=== PATIENT | female | born 1965 | race Caucasian/White ===

== ENCOUNTER 2017-07-18 09:58 | Day surgery (SDC) | payer OTHER ==
[2017-07-18] MEDS ORDERED: BACITRACIN/POLYMYXIN 28.35 GM OINT TOP (12:10)
[2017-07-18] MEDS ORDERED: DEXAMETHASONE 4 MG/ML 1 ML INJ ×2 (12:10→13:23)
[2017-07-18] MEDS ORDERED: ROPIVACAINE 0.5 % 30 ML VIAL (12:50)
[2017-07-18] MEDS ORDERED: MIDAZOLAM 1 MG/ML 2 ML INJ (12:50)
[2017-07-18] MEDS ORDERED: PROPOFOL 20 ML (12:50)
[2017-07-18] MEDS: BUPIVACAINE 0.5% (SDV) 30 ML INJ (13:15)
[2017-07-18] MEDS ORDERED: CEFAZOLIN 1 GM INJ (13:23)
[2017-07-18] MEDS ORDERED: METOCLOPRAMIDE 10 MG INJ (13:23)
[2017-07-18] MEDS ORDERED: KETOROLAC 30 MG INJ (13:23)
[2017-07-18] MEDS ORDERED: ONDANSETRON 4 MG INJ (13:23)
[2017-07-18] MEDS ORDERED: HYDROCODONE/APAP (5/325) TAB PO (14:30)
== END 2017-07-18 15:20 | disposition home or self-care (01) ==
LOC: SDS 09:58
DX: M20.41 Other hammer toe(s) (acquired), right foot (principal)
CPT/HCPCS: 28285